=== PATIENT | male | born 1975 | race Caucasian/White ===

== ENCOUNTER 2021-11-23 12:07 | Emergency (ER) | payer OTHER ==
[2021-11-23] MEDS ORDERED: Diphtheria,Pertussis(Acell),Tetanus Vaccine 0.5 ML Syringe IM ONE (12:34)
[2021-11-23] MEDS ORDERED: Lidocaine 1% 5 ML VIAL INJECT ONE ×2 (12:34→13:20)
[2021-11-23] MEDS ORDERED: ceFAZolin 1 GM Vial IM ONE (14:49)
[2021-11-23] MEDS ORDERED: Water For Injection, Sterile 10 ML SDV INJECT ONE (15:02)
[2021-11-23] MEDS ORDERED: Water For Injection, Sterile 20 ML SDV INJECT ONE (15:15)
== END 2021-11-23 15:26 | disposition home or self-care (01) ==
LOC: MW.ED 12:07
DX: S62.634B Displaced fracture of distal phalanx of right ring finger, initial encounter for open fracture (principal); Z23 Encounter for immunization; Z79.899 Other long term (current) drug therapy; W23.1XXA Caught, crushed, jammed, or pinched between stationary objects, initial encounter
CPT/HCPCS: 12002; 73130; 90471; 90715; 96372; 99283; J0690